=== PATIENT | male | born 1990 | race Caucasian/White ===

== ENCOUNTER 2022-01-14 10:14 | Emergency (ER) | payer OTHER ==
--- NOTE | 2022-01-14 10:37 | XR ---
Left shoulder. HISTORY: Pain without trauma for the past 4 months. COMPARISON: None. TECHNIQUE: 3 views left shoulder were obtained. FINDINGS: There is no fracture, dislocation, intraosseous or intra-articular abnormality. The soft tissues are unremarkable. IMPRESSION: No significant abnormality seen.
[2022-01-14] MEDS ORDERED: HYDROcodone/APAP 5-325MG 1 EACH TAB PO STA (10:39)
[2022-01-14] MEDS ORDERED: KETOROLAC 15 MG/ML 1 ML VIAL IM STA (10:39)
[2022-01-14] MEDS ORDERED: ACET/COD 300 MG/30 MG STARTER PACK 6 TAB BTL PO STA (10:39)
[2022-01-14] MEDS ORDERED: CYCLOBENZAPRINE 10MG STARTER 3 TAB BTL PO STA (10:39)
--- NOTE | 2022-01-14 10:50 | ED ---
Extremity Problem HPI - General Chief complaint: Extremity Injury, Upper Stated complaint: lt shoulder injury Time Seen by Provider: 01/14/22 10:15 Source: patient, family, RN notes reviewed Mode of arrival: ambulatory Limitations: no limitations - History of Present Illness Initial comments: This is a 31-year-old male who presents to the emergency department for left shoulder pain. Symptoms have been present for the last 4-6 weeks, worsening over the last 3-4 days. 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 The pain is worse when he tries to move his arm or presses on the shoulder. He has taken ibuprofen with no relief and has also tried icing the shoulder. States that he is now unable to sleep due to the pain. Denies any chest pain or shortness of breath. Denies any fevers, chills, sore throat, cough, dyspnea, chest pain, palpitations, abdominal pain, nausea, vomiting, diarrhea, back pain, or headaches. MD Complaint: extremity pain Onset/Timin -: week(s) Location: left, upper extremity - Related Data Previous Rx's Medication Instructions Recorded Ibuprofen [Motrin] 600 mg PO Q6HR PRN #20 tab 11/15/13 Cyclobenzaprine [Flexeril] 5 mg PO TID PRN #20 tablet 01/14/22 predniSONE 50 mg PO DAILY 5 Days #5 tablet 01/14/22 Allergies Allergy/AdvReac Type Severity Reaction Status Date / Time No Known Allergies Allergy Verified 01/14/22 10:20 Review of Systems ROS Statement: Those systems with pertinent positive or pertinent negative responses have been documented in the HPI. ROS Other: All systems not noted in ROS Statement are negative. Past Medical History Past Medical History: No Reported History History of Any Multi-Drug Resistant Organisms: None Reported Past Surgical History: No Surgical Hx Reported Past Psychological History: No Psychological Hx Reported Smoking Status: Heavy tobacco smoker Past Alcohol Use History: Occasional Past Drug Use History: None Reported General Exam Limitations: no limitations General appearance: alert, in no apparent distress Head exam: Present: atraumatic, normocephalic, normal inspection Respiratory exam: Present: normal lung sounds bilaterally. Absent: respiratory distress, wheezes, rales, rhonchi, stridor Cardiovascular Exam: Present: regular rate, normal rhythm, normal heart sounds. Absent: systolic murmur, diastolic murmur, rubs, gallop, clicks Extremities exam: Present: other (Full active and passive range of motion of the left arm, however range of motion does reproduce pain. There is also tenderness to palpation of the anterior aspect of the left shoulder. Aircraft Riveter strength is 5 out of 5 bilaterally. 2+ radial pulses and capillary refill less than 1 second bilaterally.) Neurological exam: Present: alert, oriented X3, CN II-XII intact Psychiatric exam: Present: normal affect, normal mood Skin exam: Present: warm, dry, intact, normal color. Absent: rash Course Vital Signs 01/14/22 01/14/22 01/14/22 10:16 11:00 11:38 Temperature 98 F 97.8 F Pulse Rate 94 67 90 Respiratory 16 18 18 Rate Blood Pressure 141/97 138/86 140/90 O2 Sat by Pulse 99 98 98 Oximetry Medical Decision Making - Medical Decision Making This is a 31-year-old male who presents to the emergency department for left shoulder pain. The pain is completely reproducible and the shoulder is tender, based on those findings, his age, lack of risk factors, and lack of family history, symptoms are not consistent with ACS. My interpretation of the x-ray of the left shoulder reveals no acute fractures, dislocations, or degenerative changes. Advised the patient that this may be related to an overuse injury or a rotator cuff tendinitis. He was given a dose of Toradol in the emergency department. Prescription for 5 day course of prednisone and Flexeril provided. Advised that the Flexeril can be sedating and is best taken at night. Instructed him to avoid driving or operating machinery when taking this. Also recommended he try applying heat at this point for his symptoms. Information for orthopedic follow-up was provided. Return precautions reviewed in depth, the patient is instructed to return to the emergency department with any new, worsening, or concerning symptoms. Patient verbalized understanding. This case was discussed in detail with the attending ED physician. Presentation, findings, and treatment plan discussed in detail as well. - Radiology Data Radiology results: report reviewed, image reviewed Disposition Clinical Impression: Left shoulder strain Disposition: HOME SELF-CARE Instructions (If sedation given, give patient instructions): Rotator Cuff Tendinitis (ED), Shoulder Sprain (ED) Additional Instructions: Return to the emergency department with any new, worsening, or concerning symptoms. Take the prednisone daily for 5 days. You can take 1-2 tablets of the Flexeril three times daily as needed. Be aware that this can be sedating and you should avoid driving or operating machinery when taking this. You can also try applying heat. Contact orthopedics as listed below for a follow-up appointment. Follow up with your primary care provider in 1-2 days. Prescriptions: Cyclobenzaprine [Flexeril] 5 mg PO TID PRN #20 tablet PRN Reason: Pain predniSONE 50 mg PO DAILY 5 Days #5 tablet Is patient prescribed a controlled substance at d/c from ED?: No Referrals: Leona Araiza DO [Primary Care Provider] - 1-2 days Rolan Cisneros MD [STAFF PHYSICIAN] - 1-2 days
[2022-01-14 11:01] VITALS: RESP 18
[2022-01-14 11:39] VITALS: BP 140/90; PULSE 90; TEMP 97.8
== END 2022-01-14 11:39 | disposition home or self-care (01) ==
LOC: EC 10:14
DX: S46.912A Strain of unspecified muscle, fascia and tendon at shoulder and upper arm level, left arm, initial encounter (principal); F17.200 Nicotine dependence, unspecified, uncomplicated; X50.9XXA Other and unspecified overexertion or strenuous movements or postures, initial encounter; Y92.89 Other specified places as the place of occurrence of the external cause
CPT/HCPCS: 73030; 99283; 96372; J1885

== ENCOUNTER 2023-03-27 23:24 | Emergency (ER) | payer BC, OTHER ==
[2023-03-27 23:39] VITALS: TEMP 97.5
[2023-03-28 00:24] LABS: Basophils # (A) 0.1 k/uL (0-0.2); Basophils % (A) 1 %; Eosinophils # (A) 0.3 k/uL (0-0.7); Eosinophils % (A) 2 %; HCT 45.6 % (39.0-53.0); HGB 15.8 gm/dL (13.0-17.5); Lymphocytes # (A) 3.6 k/uL (1.0-4.8); Lymphocytes % (A) 29 %; MCH 31.1 pg (25.0-35.0); MCHC 34.7 g/dL (31.0-37.0); MCV 89.7 fL (80.0-100.0); Monocytes # (A) 0.9 k/uL (0-1.0); Monocytes % (A) 7 %; Neutrophils # (A) 7.2 k/uL (1.3-7.7); Neutrophils % (A) 58 %; Platelet Count 380 k/uL (150-450); RBC 5.08 m/uL (4.30-5.90); RDW 12.3 % (11.5-15.5); WBC 12.4 k/uL (3.8-10.6)
[2023-03-28 00:29] LABS: ALT 26 U/L (4-49); AST 33 U/L (17-59); African American GFR (CKD) >90 (>60 ml/min/1.73 sqM); Albumin 4.2 g/dL (3.5-5.0); Alkaline Phosphatase 83 U/L (38-126); Anion Gap 7 mmol/L; Blood Urea Nitrogen 13 mg/dL (9-20); Calcium 9.3 mg/dL (8.4-10.2); Carbon Dioxide 24 mmol/L (22-30); Chloride 109 mmol/L (98-107); Glucose 100 mg/dL (74-99); Magnesium 2.2 mg/dL (1.6-2.3); Non-African American GFR(CKD) >90 (>60 ml/min/1.73 sqM); Potassium 4.1 mmol/L (3.5-5.1); Sodium 140 mmol/L (137-145); Total Bilirubin 0.5 mg/dL (0.2-1.3); Total Protein 7.3 g/dL (6.3-8.2)
[2023-03-28 01:00] LABS: INR 0.9 (<1.2); Partial Thromboplastin Time 24.6 sec (22.0-30.0); Prothrombin Time 10.2 sec (10.0-12.5)
[2023-03-28] MEDS: KETOROLAC 15 MG/ML 1 ML VIAL IM STA (01:03)
--- NOTE | 2023-03-28 01:24 | XR ---
EXAM: XR Chest, 2 Views CLINICAL HISTORY: ITS.REASON XR Reason: Chest Pain TECHNIQUE: Frontal and lateral views of the chest. COMPARISON: 11/15/2013 FINDINGS: Lungs: Unremarkable. No consolidation. Pleural space: Unremarkable. No pneumothorax. Heart: Unremarkable. No cardiomegaly. Mediastinum: Unremarkable. Normal mediastinal contour. Bones/joints: Unremarkable. No acute fracture. IMPRESSION: Normal chest x-rays.
[2023-03-28 01:53] VITALS: RESP 20
--- NOTE | 2023-03-28 02:20 | ED ---
Chest Pain HPI - General Chief Complaint: Chest Pain Stated Complaint: Chest Pain Time Seen by Provider: 03/27/23 23:40 Source: patient Mode of arrival: ambulatory Limitations: no limitations - History of Present Illness Initial Comments: 32-year-old male presents to the emergency department reporting chest pain. States is located on the left side of his chest with radiation into his left neck. The pain started yesterday. Reports that the pain is worse with positional changes and movement of his head to the left. He did not take anything for the pain before coming into the emergency department. He denies any shortness of breath. No nausea or vomiting. No history of cardiac disease. No family history of sudden cardiac . No history of asthma. No history of DVT or PE. Denies fevers, chills or cough. No other alleviating, precipitating or modifying factors - Related Data Previous Rx's Medication Instructions Recorded Ibuprofen [Motrin] 600 mg PO Q6HR PRN #20 tab 11/15/13 Cyclobenzaprine [Flexeril] 5 mg PO TID PRN #20 tablet 01/14/22 predniSONE 50 mg PO DAILY 5 Days #5 tablet 01/14/22 Ketorolac [Toradol] 10 mg PO Q8HR #15 tab 03/28/23 Allergies Allergy/AdvReac Type Severity Reaction Status Date / Time No Known Allergies Allergy Verified 03/27/23 23:37 Review of Systems ROS Statement: Those systems with pertinent positive or pertinent negative responses have been documented in the HPI. ROS Other: All systems not noted in ROS Statement are negative. Past Medical History Past Medical History: No Reported History History of Any Multi-Drug Resistant Organisms: None Reported Past Surgical History: No Surgical Hx Reported Past Psychological History: No Psychological Hx Reported Smoking Status: Light tobacco smoker Past Alcohol Use History: Occasional Past Drug Use History: None Reported General Exam Limitations: no limitations General appearance: alert, in no apparent distress Head exam: Present: atraumatic, normocephalic, normal inspection Eye exam: Present: normal appearance, PERRL, EOMI. Absent: scleral icterus, conjunctival injection, periorbital swelling ENT exam: Present: normal exam, mucous membranes moist Neck exam: Present: normal inspection. Absent: tenderness, meningismus, lymphadenopathy Respiratory exam: Present: normal lung sounds bilaterally, chest wall tenderness (Tenderness to the left chest wall as well as the left neck). Absent: respiratory distress, wheezes, rales, rhonchi, stridor Cardiovascular Exam: Present: regular rate, normal rhythm, normal heart sounds. Absent: systolic murmur, diastolic murmur, rubs, gallop, clicks GI/Abdominal exam: Present: soft, normal bowel sounds. Absent: distended, tenderness, guarding, rebound, rigid Extremities exam: Present: normal inspection, full ROM, normal capillary refill. Absent: tenderness, pedal edema, joint swelling, calf tenderness Back exam: Present: normal inspection Neurological exam: Present: alert, oriented X3, CN II-XII intact Psychiatric exam: Present: normal affect, normal mood Skin exam: Present: warm, dry, intact, normal color. Absent: rash Course Vital Signs 03/27/23 03/28/23 03/28/23 23:35 01:14 03:00 Temperature 97.5 F L 97.5 F L Pulse Rate 70 58 L 60 Respiratory 18 20 20 Rate Blood Pressure 127/68 109/69 108/68 O2 Sat by Pulse 99 98 98 Oximetry Chest Pain MDM - MDM Was pt. sent in by a medical professional or institution (, PA, HEDGE FUND PRINCIPAL, urgent care, hospital, or [facility]...) When possible be specific @ -No Did you speak to anyone other than the patient for history (EMS, parent, family, police, friend...)? What history was obtained from this source @ -No Did you review nursing and triage notes (agree or disagree)? Why? @ -I reviewed and agree with nursing and triage notes Were old charts reviewed (outside hosp., previous admission, EMS record, old EKG, old radiological studies, urgent care reports/EKG's, [facility] records)? Report findings @ -No old charts were reviewed Differential Diagnosis (chest pain, altered mental status, abdominal pain women, abdominal pain men, vaginal bleeding, weakness, fever, dyspnea, syncope, headache, dizziness, GI bleed, back pain, seizure, CVA, palpatations, mental health, musculoskeletal)? @ -Differential Chest Pain: Stable Angina, Unstable Angina, STEMI, NSTEMI Aortic Dissection, Pneumothorax, Musculoskeletal, Esophageal Spasm GERD, Cholecystitis, Pancreatitis, Zoster, this is not meant to be an all-inclusive list. EKG interpreted by me (3pts min.). @ -Yes and demonstrates sinus rhythm with a rate of 65. MT interval 139. QRS 92. QTc of 415. No acute ST segment elevations. There is inverted T wave in lead III. This was seen on patient's previous EKG X-rays interpreted by me (1pt min.). @ -Yes and demonstrates no acute process CT interpreted by me (1pt min.). @ -None done U/S interpreted by me (1pt. min.). @ -None done What testing was considered but not performed or refused? (CT, X-rays, U/S, labs)? Why? @ -None What meds were considered but not given or refused? Why? @ -None Did you discuss the management of the patient with other professionals (professionals i.e. , PA, HEDGE FUND PRINCIPAL, lab, RT, psych nurse, foster care social worker, renewable energy division manager, teacher, strategic debriefing officer, case preparer and liner)? Give summary @ -No Was smoking cessation discussed for >3mins.? @ -No Was critical care preformed (if so, how long)? @ -No Were there social determinants of health that impacted care today? How? (Homelessness, low income, unemployed, alcoholism, drug addiction, transportation, low edu. Level, literacy, decrease access to med. care, half-way, rehab)? @ -No Was there de-escalation of care discussed even if they declined (Discuss DNR or withdrawal of care, Hospice)? DNR status @ -No What co-morbidities impacted this encounter? (DM, HTN, Smoking, COPD, CAD, Cancer, CVA, ARF, Chemo, Hep., AIDS, mental health diagnosis, sleep apnea, morbid obesity)? @ -None Was patient admitted / discharged? Hospital course, mention meds given and route, prescriptions, significant lab abnormalities, going to OR and other pertinent info. @ -Discharge. Upon arrival patient placed into room 24. Thorough history and physical exam was performed. Twelve-lead EKG is obtained. Laboratory studies are conducted. Chest x-ray was performed. Results are discussed with the patient. Patient's symptoms do appear to be musculoskeletal in nature. Cardiac workup is negative. Pain is reproducible upon movement. He did have improvement in his pain with Toradol administration. At this time the patient will be discharged home. Instructed to follow-up with his doctor and return for any new or worsening symptoms. Recommended Motrin and Tylenol for pain control and warm compresses. Patient agreeable to this plan and was discharged in stable condition Undiagnosed new problem with uncertain prognosis? @ -No Drug Therapy requiring intensive monitoring for toxicity (Heparin, Nitro, Insulin, Cardizem)? @ -No Were any procedures done? @ -No Diagnosis/symptom? @ -Acute left-sided chest wall pain, suspected musculoskeletal pain Acute, or Chronic, or Acute on Chronic? @ -Acute Uncomplicated (without systemic symptoms) or Complicated (systemic symptoms)? @ -Uncomplicated Side effects of treatment? @ -No Exacerbation, Progression, or Severe Exacerbation? @ -No Poses a threat to life or bodily function? How? (Chest pain, [place], [place], pneumonia, PE, COPD, DKA, ARF, appy, cholecystitis, CVA, Diverticulitis, Homicidal, Suicidal, threat to staff... and all critical care pts) @ -No Disposition Clinical Impression: Chest pain Disposition: HOME SELF-CARE Condition: Stable Instructions (If sedation given, give patient instructions): Chest Wall Pain (ED) Additional Instructions: Please take the medications as directed. Place warm compresses to the site. Follow-up with your doctor and return for any new or worsening symptoms Prescriptions: Ketorolac [Toradol] 10 mg PO Q8HR #15 tab Is patient prescribed a controlled substance at d/c from ED?: No Referrals: None,Stated [Primary Care Provider] - 1-2 days Time of Disposition: 02:42
[2023-03-28 03:15] VITALS: BP 108/68; PULSE 60
== END 2023-03-28 03:09 | disposition home or self-care (01) ==
LOC: EC 23:24
DX: R07.89 Other chest pain (principal); F17.200 Nicotine dependence, unspecified, uncomplicated
CPT/HCPCS: 36415; 93005; 80053; 83735; 84484; 85025; 85610; 85730; 71046; 99285; 96372; J1885

== ENCOUNTER 2023-10-21 18:52 | Emergency (ER) | payer OTHER ==
[2023-10-21 18:59] VITALS: TEMP 97.4
[2023-10-21] MEDS: KETOROLAC 15 MG/ML 1 ML VIAL IM STA (19:27)
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
--- NOTE | 2023-10-21 20:01 | XR ---
EXAMINATION TYPE: XR wrist complete RT DATE OF EXAM: 10/21/2023 7:35 PM CLINICAL INDICATION: Male, 33 years old with history of injury; H COMPARISON: None TECHNIQUE: XR wrist complete RT; examined in the Frontal, navicular, lateral, and oblique. FINDINGS/IMPRESSION: Acute intra-articular fracture of the distal radius with mild displacement of the intra-articular fra cture up to 3 mm.
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
[2023-10-21 21:10] VITALS: BP 127/80; PULSE 75; RESP 20
== END 2023-10-21 21:09 | disposition home or self-care (01) ==
LOC: EC 18:52
DX: S52.571A Other intraarticular fracture of lower end of right radius, initial encounter for closed fracture (principal); V89.2XXA Person injured in unspecified motor-vehicle accident, traffic, initial encounter; Y92.410 Unspecified street and highway as the place of occurrence of the external cause
CPT/HCPCS: 73030; 73110; 29125; 99284; 96372; J1885

== ENCOUNTER 2023-10-29 07:47 | Day surgery (SDC) | payer OTHER ==
[~2023-10-29 07:47] MED LIST: HYDROmorphone 0.5 MG/0.5 ML SYRINGE IVP PRN
[2023-10-29] MEDS: fentaNYL (PF) 50 MCG/ML 2 ML AMP IVP PRN (09:30)
[2023-10-29] MEDS: DEXAMETHASONE SOD PHOSPHATE 4 MG/ML 1 ML VIAL IVP STA (09:50)
[2023-10-29] MEDS: ONDANSETRON 4 MG/2 ML VIAL IVP STA (09:50)
[2023-10-29] MEDS: MIDAZOLAM 2 MG/2 ML VIAL IV PRN (09:52)
[2023-10-29] MEDS: IV FLUID CONTINUATION 1,000 ML IV ONE (09:53)
[2023-10-29] MEDS: LACTATED RINGERS 1,000 ML IV SCH (09:53)
[2023-10-29] MEDS ORDERED: fentaNYL (PF) 50 MCG/ML 2 ML AMP ONE (09:59)
[2023-10-29] MEDS ORDERED: DEXAMETHASONE SOD PHOSPHATE 4 MG/ML 1 ML VIAL ONE (09:59)
[2023-10-29] MEDS ORDERED: ROPIVACAINE 5 MG/ML 30 ML VIAL ONE (09:59)
[2023-10-29] MEDS ORDERED: LIDOCAINE 1% INJ 10MG/ML (20 ML MDV) ONE (09:59)
[2023-10-29] MEDS ORDERED: PROPOFOL 10 MG/ML 20 ML VIAL IV ONE (09:59)
[2023-10-29] MEDS ORDERED: MIDAZOLAM 2 MG/2 ML VIAL ONE (09:59)
[2023-10-29] MEDS ORDERED: PHENYLEPHRINE 10 MG/ML VIAL ONE (09:59)
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
[2023-10-29] MEDS: LACTATED RINGERS 1,000 ML IV ONE (10:57)
--- NOTE | 2023-10-29 11:19 | P.ANPRN ---
Procedure Note - Anesthesia - Nerve Block Performed Right Axillary Single Time Out Performed: Yes Date of Procedure: 10/29/23 Procedure Start Time: : Procedure Stop Time: :38 Location of Patient: PreOp Indication: Acute Post-Operative Pain, Requested by Surgeon Sedation Type: Sedate with meaningful contact maintained Preparation: Sterile Prep Position: Supine Needle Types: Pajunk Needle Gauge: 21 Ultrasound used to visualize needle placement: Yes Ultrasound used to observe medication spread: Yes Injectate: 0.5% Ropivacaine (see comment for volume) (30 ml + 4 mg Dexam ethasone) Blood Aspirated: No Pain Paresthesia on Injection Noted: No Resistance on Injection: Normal Image Stored and Saved: Yes Events: Uneventful and Well Tolerated
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
[2023-10-29 11:39] VITALS: TEMP 96.9
[2023-10-29 12:26] VITALS: RESP 16
[2023-10-29 12:39] VITALS: BP 124/81; PULSE 83
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
== END 2023-10-29 12:48 | disposition home or self-care (01) ==
LOC: OR 07:47
PROVIDERS: ATTEND Orthopaedic Surgery
DX: S52.571A Other intraarticular fracture of lower end of right radius, initial encounter for closed fracture (principal); G89.18 Other acute postprocedural pain; V28.49XA Other motorcycle driver injured in noncollision transport accident in traffic accident, initial encounter; F17.210 Nicotine dependence, cigarettes, uncomplicated
CPT/HCPCS: 64415